=== PATIENT | female | born 1970 | race Caucasian/White ===

== ENCOUNTER 2018-09-22 19:52 | Emergency (ER) | payer BC, SELFPAY ==
[2018-09-22 19:53] VITALS: BP 150/79; PULSE 89; RESP 18; TEMP 36.8; O2SAT 100; BMI 26.5
--- NOTE | 2018-09-22 21:12 | EKG12_ITS ---
Test Reason : CP Blood Pressure : / mmHG Vent. Rate : 075 BPM Atrial Rate : 075 BPM P-R Int : 148 ms QRS Dur : 082 ms QT Int : 392 ms P-R-T Axes : 028 029 025 degrees QTc Int : 437 ms Normal sinus rhythm Normal ECG Confirmed by GIDEON LEW, TRUNG ([id number]), desk editor HAYLEY PERSAUD ([id number]) on 09/24/2018 10:46:52 AM Referred By: DR MORALEZ Confirmed By:TRUNG MENESES MD
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
[2018-09-22] MEDS: LORazepam 0.5 MG Tablet PO (21:27)
[2018-09-22 21:36] VITALS: BP 127/81; PULSE 82; RESP 16; O2SAT 98
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
[2018-09-22 21:40] LABS: Absolute Neutrophil Count 11.5 X10^3/uL (2.0-7.7); Basophil# 0.07 X10^3/uL; Basophil% 0.5 % (0-1); Eosinophil# 0.04 X10^3/uL; Eosinophils% 0.3 % (0-5); Hematocrit 33.1 % (37-47); Hemoglobin 9.4 g/dL (12.0-15.0); Lymphocyte % 8.7 % (19-41); Mean Corp Hgb Conc 28.4 g/dL (32-36); Mean Corpuscular Hgb 20.1 pg (27.0-32.0); Mean Corpuscular Volume 70.7 fL (81-99); Mean Platelet Vol. 9.6 fl (6.2-12.0); Monocyte# 0.97 X10^3/uL; NRBC Flagged by Analyzer 0 % (0-5); Neutrophil # 11.45 X10^3/uL (2.7-7.7); Neutrophil % 82.9 % (47-70); Platelet Count 323 K/mm3 (150-450); RBC Distribution Width CV 17.3 % (11.6-14.6); RBC Distribution Width SD 43.7 fl (35.1-43.9); Red Blood Count 4.68 M/mm3 (4.2-5.4); White Blood Count 13.8 K/mm3 (4.4-11.0)
[2018-09-22 21:58] LABS: ALB/GLOB Ratio 1.2 RATIO (0.9-2.4); AST(SGOT) 30 U/L (15-37); Alanine Aminotransfer ALT/SGPT 21 U/L (13-56); Alkaline Phosphatase 72 U/L (45-117); Anion Gap 8 (5-15); BUN 10 mg/dL (7-18); BUN/Creat Ratio 12.8 RATIO (10-20); Calcium,Total 9.4 mg/dL (8.5-10.1); Chloride 108 mmol/L (98-107); Creatinine, Serum 0.78 mg/dL (0.55-1.02); EST Glomerular Filtration Rate 84 mL/min (>60); Est Glom Filt Rate - Afr Amer 101 mL/min (>60); Estimated Creatinine Clearance 70.52 ml/min; Globulin 3.3 g/dL (2.2-4.2); Glucose 103 mg/dL (74-106); Potassium 3.5 mmol/L (3.5-5.1); Protein, Total 7.3 g/dL (6.4-8.2); Sodium Level 141 mmol/L (136-145)
[2018-09-22 22:00] VITALS: BP 121/71; PULSE 81; RESP 18; O2SAT 98
[2018-09-22] MEDS: Lidocaine/Epi/Tetracaine 50 ML 1 APPLIC TOPICAL (22:25)
[2018-09-22 23:00] VITALS: BP 119/81; PULSE 89; RESP 16; O2SAT 97
[2018-09-23] VITALS: PULSE 81; RESP 16; O2SAT 97
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
[2018-09-23] MEDS: Ondansetron 4 MG/2 ML Vial IV (01:41)
[2018-09-23] MEDS: HYDROcodone Bitartrate/Apap 5/325 Tablet PO (02:22)
[2018-09-23 02:30] VITALS: BP 117/75; PULSE 82; RESP 16; O2SAT 100; O2SAT 98
== END 2018-09-23 02:32 | disposition home or self-care (01) ==
PROVIDERS: Emergency Provider Emergency Medicine
DX: R55 Syncope and collapse (principal); S22.41XA Multiple fractures of ribs, right side, initial encounter for closed fracture; S01.111A Laceration without foreign body of right eyelid and periocular area, initial encounter; S00.83XA Contusion of other part of head, initial encounter; S90.511A Abrasion, right ankle, initial encounter; M25.511 Pain in right shoulder; V47.5XXA Car driver injured in collision with fixed or stationary object in traffic accident, initial encounter; Y93.9 Activity, unspecified; Y92.9 Unspecified place or not applicable; Y99.9 Unspecified external cause status; Z79.899 Other long term (current) drug therapy
CPT/HCPCS: 12011; 70450; 70486; 71045; 71250; 74177; 80053; 85025; 93005; 96374; 99285; J7040; Q9967; A4216; J2405